=== PATIENT | male | born 1990 | race Two or more races ===

== ENCOUNTER 2023-11-26 14:11 | Emergency (ER) | payer OTHER ==
[2023-11-26 15:02] VITALS: RESP 17; BMI 22.7
[2023-11-26] MEDS ORDERED: ACETAMINOPHEN INJECTION 100 ML ONE (16:42)
[2023-11-26] MEDS: ACETAMINOPHEN 1000 MG/100 ML BAG IVPB ONE (17:05)
[2023-11-26 17:13] LABS: BASO % 0.7 % (0-2.0); EOS % 0.8 % (0-4.5); HEMATOCRIT 40.3 % (35.4-49); HEMOGLOBIN 13.8 GM/dL (11.7-16.9); LYMPH % 25.3 % (8-40); MCH 30.5 pg (25.7-33.7); MCHC 34.2 g/dl (32.0-35.9); MEAN CELL VOLUME 89.3 fl (80-96); MEAN PLT VOLUME 9.7 fl (7.5-11.1); MONO % 8.1 % (3.8-10.2); NEUT % 65.1 % (42.8-82.8); PLATELET COUNT 211 10^3/uL (134-434); RBC 4.51 M/mm3 (4.00-5.60); RDW 12.8 % (11.9-15.9); WHITE BLOOD COUNT 6.1 K/mm3 (4.0-10.0)
[2023-11-26 17:32] LABS: POTASSIUM 4.3 mmol/L (3.5-5.1)
[2023-11-26 17:36] LABS: ALBUMIN 4.5 g/dl (3.4-5.0); BLOOD UREA NITROGEN 15.3 mg/dL (7-18); CALCIUM 9.8 mg/dL (8.5-10.1)
[2023-11-26 17:39] LABS: CREATININE 0.9 mg/dL (0.55-1.3)
[2023-11-26 17:40] LABS: BILIRUBIN,TOTAL 0.7 mg/dL (0.2-1); TOT PROT 8.1 g/dl (6.4-8.2)
[2023-11-26 18:27] LABS: HIV INTERPRETATION NEGATIVE (NEGATIVE)
[2023-11-26 18:30] VITALS: BP 125/76; PULSE 86; TEMP 98.2
== END 2023-11-26 19:03 | disposition home or self-care (01) ==
LOC: JER 14:11
PROC: 3E033NZ Introduction of Analgesics, Hypnotics, Sedatives into Peripheral Vein, Percutaneous Approach (ICD-10-PCS; principal; 2023-11-26)
DX: R07.89 Other chest pain (principal); Z20.822 Contact with and (suspected) exposure to COVID-19
CPT/HCPCS: 0241U-QW; 36415; 71046-TC-FY; 80053; 84484; 85025; 86803; 87389; 93005; 93010; 96374; 99285-25; J0131